=== PATIENT | female | born 1955 | race Caucasian/White ===

== ENCOUNTER → 2017-07-14 | Outpatient (CLI) | payer OTHER ==
--- NOTE | 2017-07-15 18:25 | CT ---
EXAM DESCRIPTION: Abdoment/Pelvis w/o Contrast CLINICAL HISTORY: HEMATURIA, LEFT SIDED FLANK PAIN.R10.12.R31.9 COMPARISON: None Available. TECHNIQUE: Contiguous axial images of the abdomen and pelvis were obtained followed by reconstruction images. This exam was performed according to our departmental dose-optimization program, which includes automated exposure control, adjustment of the mA and/or kV according to patient size and/or use of iterative reconstruction technique. FINDINGS: There is a 3 mm right renal stone. No ureteral stone on either side. No left renal stone is seen. There is an incompletely imaged 5 mm nodular density at the medial right posterior lung base. The liver, spleen, pancreas and kidneys are otherwise within normal limits. There is no hydronephrosis or additional renal stones. The gallbladder is unremarkable by CT criteria. Adrenal glands are within normal limits. Aorta is of normal caliber and tapering. There is no free fluid in the abdomen or pelvis. There is no bowel obstruction. There is no stranding of the mesenteric fat to suggest an inflammatory response. The appendix is within normal limits. There is no pericecal inflammation. Bilateral breast implants are present. IMPRESSION: Right renal stone. No other acute abnormality.. Electronically signed by: Migue Banuelos 07/15/2017 6:24 PM [employer]
== END ==
LOC: CT 09:57
PROVIDERS: ATTEND General Practice
DX: N20.0 Calculus of kidney (principal); R10.12 Left upper quadrant pain; R31.9 Hematuria, unspecified

== ENCOUNTER → 2018-02-16 | Outpatient (CLI) | payer OTHER ==
--- NOTE | 2018-02-16 16:14 | CT ---
EXAM DESCRIPTION: Cervical Spine: Computed Tomography. CLINICAL HISTORY: NECK PAIN COMPARISON: CT scan of the head without contrast on the same visit. TECHNIQUE: Spiral, axial 2.5 mm scans through the cervical spine without contrast. 2.0 mm sagittal and coronal Reconstructions Total Exam DLP: 414.14 mGy-cm. This exam was performed according to our departmental dose-optimization program which includes automated exposure control, adjustment of the mA and/or kV according to patient size and/or use of iterative reconstruction technique; to reduce radiation dose to as low as reasonably achievable (ALARA). 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 Atlantoaxial occipital facets with mild arthrosis bilaterally. Bilateral C1 to facets are unremarkable. C2-3: Disc space preserved. No significant bulging. Canal and foramina are patent. Right facet arthrosis. C3-4: Grade 1 anterolisthesis. Small bilateral uncinate spurs. Bilateral facet arthrosis more on the left. Moderate to severe left neural foraminal narrowing and right neuroforamen is patent. C4-5: Disc space preserved with no significant bulging. Trace anterolisthesis. Left facet arthrosis and mild neural foraminal narrowing. Canal and right neuroforamen are patent. C5-6: Moderate disc space narrowing with anterior endplate ridging. Bilateral uncinate spur. Posterior disc spur bulge slightly more to the left of midline abutting the cord. Bilateral mild to moderate neural foraminal narrowing. Bilateral mild facet arthrosis more on the left. C6-7: Minimal posterior disc bulge and posterior endplate spurs but not abutting the cord. Disc space preserved. Mild canal narrowing. No uncinate spurs. Minimal left facet arthrosis. Minimal left neural foraminal narrowing. Right neuroforamen patent. C7-T1: Disc space preserved with no significant bulging. Posterior elements unremarkable. Canal and neural foramina are patent. Trace dextroscoliosis. No compression type vertebral body fractures at any level. Minimal emphysematous changes in the included lungs. No significant soft tissue masses in the included neck soft tissues. Airway is not effaced. IMPRESSION: 1. Grade 1 anterolisthesis C3-4. Small bilateral uncinate spurs and bilateral facet arthrosis more on the left. Moderate severe left neural foraminal narrowing. Correlate for left C4 radiculopathy. 2. C5-6 spondylosis moderate disc space narrowing and posterior disc spur bulge abutting the cord. Bilateral mild to moderate neural foraminal narrowing. 3. Mild spondylosis at C6-7 with posterior disc spur bulge not abutting the cord. Minimal left neural foraminal narrowing with facet arthrosis. Electronically signed by: Migue Pacheco MD 02/16/2018 4:13 PM CDT
--- NOTE | 2018-02-16 16:24 | CT ---
EXAM DESCRIPTION: Head w/wo Contrast: Computed Tomography. CLINICAL HISTORY: HEADACHE COMPARISON: CT scan of the cervical spine without IV contrast. TECHNIQUE: Spiral -axial scans through the head and brain at 2.5 mm intervals, without and with nonionic IV contrast. Coronal and sagittal 2.0 mm reconstructions, before and after IV contrast. No adverse reactions. Total Exam DLP: 1719.94 mGy-cm. This exam was performed according to our departmental CT dose-optimization program which includes automated exposure control, adjustment of the mA and/or kV according to patient size and/or use of iterative reconstruction technique; to reduce radiation dose to as low as reasonably achievable (ALARA). FINDINGS: No hemorrhage. No mass-effect and no midline shift. Normal contrast enhancement. Normal shoemaker-white matter differentiation. No abnormal radiodense material in the brain parenchyma on the precontrast scans.Vascular calcifications anterior; physiologic calcifications in the pineal gland and choroid plexus. No effacement or displacement of the ventricles, CSF spaces, or subdural spaces. Normal contrast enhancement. No extra axial fluid collection or hemorrhage. No gross abnormalities of the bony calvarium. No unusual enhancement in the [place]. IMPRESSION: 1. No hemorrhage. No mass effect or midline shift.. Normal contrast enhancement in the brain. No vasculitis, no large aneurysm or large stenosis visualized. 2. CT scans are insensitive for detecting small CVA's in the first 24 hours after onset. Evaluation of the brain stem is also limited. If symptoms persist, consider MRI scan of the brain with diffusion imaging. Electronically signed by: Migue Pacheco MD 02/16/2018 4:23 PM CDT
== END ==
LOC: CT 12:59
PROVIDERS: ATTEND General Practice
DX: M50.222 Other cervical disc displacement at C5-C6 level (principal); M50.223 Other cervical disc displacement at C6-C7 level; M47.892 Other spondylosis, cervical region; R51 Headache